=== PATIENT | male | born 1970 | race Caucasian/White ===

== ENCOUNTER 2016-05-08 20:05 | Emergency (ER) | payer BC ==
[2016-05-08 20:10] VITALS: TEMP 97.2
[2016-05-08] MEDS ORDERED: NITROGLYCERIN SL TABS 0.4 MG TAB SUBLINGUAL STA (20:45)
[2016-05-08] MEDS ORDERED: SODIUM CHLORIDE 0.9% 500 ML IV STA (20:45)
[2016-05-08] MEDS ORDERED: SODIUM CHLORIDE 0.9% 1,000 ML IV STA (20:45)
[2016-05-08] MEDS ORDERED: ASPIRIN 81 MG CHEW PO STA (20:45)
[2016-05-08] MEDS ORDERED: HEPARIN SODIUM,PORCINE 5,000 UNIT/ML 1 ML VIAL IV ONE (20:47)
[2016-05-08] MEDS ORDERED: METOCLOPRAMIDE 5 MG/ML 2 ML VIAL IVP STA (20:50)
[2016-05-08] MEDS ORDERED: HEPARIN SODIUM,PORCINE/D5W PMX 25,000 UNIT in DEXTROSE/WATER 1 500ML.BAG IV SCH (21:00)
--- NOTE | 2016-05-08 21:01 | ED ---
General Adult HPI - General Chief complaint: Chest Pain Stated complaint: Chest Pain/Pneumonia Time Seen by Provider: 05/08/16 20:14 Source: patient, family, RN notes reviewed Mode of arrival: ambulatory Limitations: no limitations - History of Present Illness Initial comments: Chief complaint and history of present illness a 46-year-old male here with his . Patient reports she's been having on-again off-again chest pain across the upper chest for the past several weeks. Usually increases with exertion. Today he was out working in his garage and the pain started. He reports nausea vomiting once and diaphoresis. Patient can emergency room. Recently was seeing his family physician and put on prednisone because he was exposed to some chemicals that may have irritated his lungs. No antibiotics today. Patient also reports that this past December when he took his daughter's school he had an hour have chest pain driving home. Patient denies any previous problems with his heart , prior to that time. Patient is a smoker. Strong family history for MIs. Can emergency room hypertensive at 174/102. States his blood pressures normally and 145/80 range. The patient a regional flatbed truck driver. - Related Data Home Medications Medication Instructions Recorded Confirmed predniSONE 10 mg PO DAILY 05/08/16 05/08/16 Allergies Allergy/AdvReac Type Severity Reaction Status Date / Time amoxicillin [From Augmentin] Allergy Nausea & Verified 05/08/16 20:10 Vomiting clavulanic acid Allergy Nausea & Verified 05/08/16 20:10 [From Augmentin] Vomiting Review of Systems ROS Statement: Those systems with pertinent positive or pertinent negative responses have been documented in the HPI. Review of systems. Patient denies any headache or visual acuity changes. The patient has chest pain that was across the chest he rated as a fibrous 6 and 10. He was given sublingual nitro. The patient reports made her feel somewhat funny. The patient's chest pain though when away within several minutes. To 135/80. Mildly diaphoretic after the sublingual nitro but again chest pain stopped. The chest pain was across the chest did not radiate down the arms into the back or into the jaw or neck. No neuro deficits complained of. No direct injury. All systems reviewed. Past medical problems the patient is being treated with eardrops for perforated left tympanic membrane. He's also been on prednisone for a period of time because of inhaling some chemicals he was working with. Patient otherwise denies any chronic medical problems are being treated. Surgeries none. Family history mother and father both had heart attacks whenever 69. The patient does smoke strongly encouraged to stop. Drinks alcohol socially. ROS Other: All systems not noted in ROS Statement are negative. Past Medical History Additional Past Medical History / Comment(s): arthritis, pneumonia Past Surgical History: No Surgical Hx Reported Smoking Status: Current every day smoker Past Alcohol Use History: None Reported Past Drug Use History: None Reported General Exam - General Exam Comments Initial Comments: General: The patient is awake and alert, anxious and complaining of discomfort across the upper chest. Nausea vomiting once at home with mild diaphoresis. Vital signs show temperature 97.2 pulse 90 respiratory rate 18 pulse ox 95% room air blood pressure 174/102. This came down after the sublingual nitro. The pain also stopped. Eye: Pupils are equal, round and reactive to light, extra-ocular movements are intact ; there is normal conjunctiva bilaterally. No signs of icterus. Ears, nose, mouth and throat: There are moist mucous membranes and no oral lesions. Neck: The neck is supple, there is no tenderness or JVD. Cardiovascular: There is a regular rate and rhythm. No murmur, rub or gallop is appreciated. Area pain across the upper chest resolved with sublingual nitro. Respiratory: Lungs are clear to auscultation, respirations are non-labored, breath sounds are equal. No wheezes, stridor, rales, or rhonchi. Gastrointestinal: Patient did vomit once and felt nauseated while in emergency room. He was given IV Reglan. Back: There is no tenderness to palpation in the midline. There is no obvious deformity. No rashes noted. Musculoskeletal: Normal ROM, no tenderness, There is no pedal edema. There is no calf tenderness or swelling. Neurological: No complaints of or evidence of any neuro deficits. Skin: Patient has psoriasis. He has up until now been taking Enbrel Limitations: no limitations Course Vital Signs 05/08/16 20:07 Temperature 97.2 F L Pulse Rate 90 Respiratory 18 Rate Blood Pressure 174/102 O2 Sat by Pulse 95 Oximetry EKG Findings - EKG Comments: EKG Findings:: Patient had 2 EKGs done the first one time at 2021. Showing normal sinus rhythm age undetermined septal infarct with ischemic changes laterally. Rate 99 HI interval is 166 QRS 86 QT 334 QTc 428. Second EKG was done after the sublingual nitro when he reported relief of discomfort. I was dated and timed at 2040 p.m. Showing sinus tach rate 107 again septal infarct age undetermined but less ischemic changes as compared to the first done just 22 minutes earlier. Rate 107 HI interval is 158 QRS [address] Damon Medical Decision Making - Medical Decision Making Chest x-ray was done portably AP view. Patient slightly rotated. No acute pulmonary pathology appreciated. Chest pain subsided significantly after sublingual nitro. EKG ischemic changes subsided as well. On-call search strategist Dr. Rahman, was notified pictures of 3 EKG sent to him. He recommends Lopressor 25 twice a day, nitro paste, Lipitor 40. Patient be admitted to Dr. Self. Disposition Clinical Impression: Unstable angina pectoris Disposition: ADMITTED IP TO THIS HOSP Condition: Serious
[2016-05-08 21:03] LABS: Basophils % (A) 0 %; CH 31.5; CHCM 35.5; Eosinophils # (A) 0.1 k/uL (0-0.7); Eosinophils % (A) 1 %; HCT 52.9 % (39.0-53.0); HDW 2.71; HGB 18.4 gm/dL (13.0-17.5); Luc # (Auto) 0.09; Luc % (Auto) 1; Lymphocytes # (A) 1.6 k/uL (1.0-4.8); Lymphocytes % (A) 14 %; MCH 30.9 pg (25.0-35.0); MCHC 34.7 g/dL (31.0-37.0); Mean Platelet Volume 6.4; Monocytes # (A) 0.3 k/uL (0-1.0); Monocytes % (A) 2 %; Neutrophils # (A) 9.8 k/uL (1.3-7.7); Neutrophils % (A) 82 %; RBC 5.95 m/uL (4.30-5.90); RDW 13.3 % (11.5-15.5); WBC 11.9 k/uL (3.8-10.6)
[2016-05-08] MEDS ORDERED: METOPROLOL TARTRATE 25 MG TAB PO STA (21:06)
--- NOTE | 2016-05-08 21:08 | XR ---
EXAMINATION TYPE: XR chest 1V portable DATE OF EXAM: 05/08/2016 8:55 PM COMPARISON: NONE HISTORY: Chest pain and cough and congestion. TECHNIQUE: Single AP portable frontal upright view of the chest is obtained. FINDINGS: There is no focal air space opacity, pleural effusion, or pneumothorax seen. The cardiac silhouette size is within normal limits. The osseous structures are intact. IMPRESSION: No acute process.
[2016-05-08 21:09] LABS: INR 1.1 (<1.1); Partial Thromboplastin Time 25.3 sec (22.0-30.0); Prothrombin Time 10.7 sec (9.0-12.0)
[2016-05-08] MEDS ORDERED: ATORVASTATIN 40 MG TAB PO STA (21:09)
[2016-05-08 21:12] LABS: ALT 60 U/L (21-72); AST 34 U/L (17-59); Alkaline Phosphatase 94 U/L (38-126); Anion Gap 13 mmol/L; Blood Urea Nitrogen 14 mg/dL (9-20); Carbon Dioxide 25 mmol/L (22-30); Chloride 103 mmol/L (98-107); Glucose 148 mg/dL (74-99); Non-African American GFR(MDRD) >60 (>60 ml/min/1.73 sqM); Potassium 4.5 mmol/L (3.5-5.1); Sodium 141 mmol/L (137-145); Total Bilirubin 0.6 mg/dL (0.2-1.3); Total Protein 7.6 g/dL (6.3-8.2)
[2016-05-08 21:17] VITALS: RESP 16
[2016-05-08] MEDS ORDERED: NALOXONE 0.4 MG/ML 1 ML VIAL IV PRN (21:21)
[2016-05-08] MEDS ORDERED: LORazepam 2 MG/ML SYRINGE IV PRN (21:21)
[2016-05-08] MEDS ORDERED: HYDROmorphone 1 MG/ML 1 ML SYRINGE IV PRN (21:21)
[2016-05-08] MEDS ORDERED: SODIUM CHLORIDE 0.9% 1,000 ML IV SCH (21:30)
[2016-05-08 21:31] LABS: Creatine Kinase MB 1.2 ng/mL (0.0-2.4)
[2016-05-08] MEDS ORDERED: NITROGLYCERIN OINT 1 INCH/GM PACKET TOPICAL STA (21:36)
[2016-05-08 21:38] LABS: Troponin I 0.055 ng/mL (0.000-0.034)
[2016-05-08 22:22] VITALS: BP 141/72; PULSE 111
[2016-05-09] MEDS ORDERED: NITROGLYCERIN OINT 4 INCH/4 GM TUBE TOPICAL SCH
[2016-05-09] MEDS ORDERED: METOPROLOL TARTRATE 25 MG TAB PO SCH (09:00)
[2016-05-09] MEDS ORDERED: ATORVASTATIN 40 MG TAB PO SCH (09:00)
[2016-05-09] MEDS ORDERED: PANTOPRAZOLE 40 MG/10 ML VIAL IV SCH (09:00)
== END 2016-05-08 22:19 | disposition short-term general hospital (02) ==
LOC: EC 20:05 → 6SEL 21:22 → UNDOADMIN 21:22 → EC 22:19
DX: I20.0 Unstable angina (principal); R61 Generalized hyperhidrosis; R11.2 Nausea with vomiting, unspecified; I25.9 Chronic ischemic heart disease, unspecified; M19.90 Unspecified osteoarthritis, unspecified site; F17.200 Nicotine dependence, unspecified, uncomplicated; L40.9 Psoriasis, unspecified; R00.0 Tachycardia, unspecified; Z87.01 Personal history of pneumonia (recurrent); Z82.49 Family history of ischemic heart disease and other diseases of the circulatory system; Z79.52 Long term (current) use of systemic steroids; Z88.0 Allergy status to penicillin
CPT/HCPCS: 99285; 96365; 96375; 96376; 36415; 93005; 80053; 82550; 82553; 83735; 84484; 85025; 85610; 85730; 71010; J1644 ×2; J2765

== ENCOUNTER → 2018-04-21 | Outpatient (CLI) | payer BC ==
--- NOTE | 2018-04-21 12:33 | XR ---
EXAMINATION TYPE: XR lumbar spine 2 or 3V DATE OF EXAM: 04/21/2018 CLINICAL HISTORY: Low back pain and thoracic spine pain. TECHNIQUE: Frontal, lateral, and oblique images of the lumbar spine are obtained. COMPARISON: None FINDINGS: There are 5 lumbar type vertebral bodies identified. The lumbar spine shows satisfactory alignment without evidence of acute fracture or dislocation. Vertebral body heights and disk space he ights are within normal limits. Mild facet arthropathy is seen from L4 through S1 with small marginal osteophytes at L4 and L5. The overlying soft tissue appears unremarkable. IMPRESSION: No acute fracture or dislocation is seen in the lumbar spine. Mild degenerative disc dis ease of the lumbar spine.
--- NOTE | 2018-04-21 12:34 | XR ---
EXAMINATION TYPE: XR thoracic spine complete DATE OF EXAM: 04/21/2018 CLINICAL HISTORY: Right-sided upper back pain TECHNIQUE: Frontal, lateral, and swimmer's view of thoracic spine are obtained. COMPARISON: None. FINDINGS: Thoracic spine show satisfactory alignment without evidence of acute fracture or dislocatio n. Vertebral body heights and disc space heights are preserved. Visualized ribs are unremarkable. Sternotomy wires are incidentally noted. Minimal degenerative disc disease is seen as there are very few and small midthoracic osteophytes. IMPRESSION: No acute fracture or dislocation is seen in the thoracic spine. Mild degenerative disc d isease of the midthoracic spine.
== END | disposition home or self-care (01) ==
LOC: RADXRYALE 11:17
PROVIDERS: ATTEND Family Medicine
DX: M51.35 Other intervertebral disc degeneration, thoracolumbar region (principal)
CPT/HCPCS: 72072; 72100

== ENCOUNTER → 2021-02-17 | Outpatient (CLI) | payer BC ==
--- NOTE | 2021-02-17 14:19 | XR ---
EXAMINATION TYPE: PA chest and right rib series DATE OF EXAM: 02/17/2021 COMPARISON: Chest 05/08/2016 HISTORY: 50-year-old male [id number], [id number] CHEST PAIN ON BREATHING, SPRAIN CCJ TECHNIQUE: 5 views FINDINGS: Median sternotomy wires are present. Heart borderline in size. There is a small right pleural effusio n with patchy right basilar opacity. Strandy atelectasis in the left base. Densities in the right upper quadrant, suspected gallstones. No displaced right rib fracture seen. IMPRESSION: 1. Small right pleural effusion with right basilar atelectasis and/or consolidation. This is new comp ared to 05/08/2016. Recommend further workup and correlation as to etiology. 2. No displaced right rib fracture seen.
== END | disposition home or self-care (01) ==
LOC: RADXRYALE 11:14
PROVIDERS: ATTEND Family Medicine
DX: J90 Pleural effusion, not elsewhere classified (principal); J98.11 Atelectasis